=== PATIENT | female | born 1955 | race Caucasian/White ===

== ENCOUNTER 2023-01-12 09:13 | Outpatient (AMB) | payer MEDICARE, MEDICAID, SELFPAY ==
--- NOTE | 2023-01-12 09:56 | MHC.OFFVIS ---
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 Intake Note: NPV for Parkinsons, states mom had it and from it Punch Box Tender Required: No Allergies egg [EGG] Allergy (Unknown, Unverified 01/12/23 09:56) UNKNOWN levothyroxine Allergy (Unknown, Verified 01/12/23 09:56) Unknown milk [MILK] Allergy (Unknown, Unverified 01/12/23 09:56) UNKNOWN Penicillins [PENICILLINS] Allergy (Unknown, Unverified 01/12/23 09:56) UNKNOWN Seasonal Allergies Allergy (Unknown, Verified 01/12/23 09:56) Unknown Medication List - Last Reconciled 01/12/23 by Mine Cartagena MD aspirin (Adult Low Dose Aspirin) 81 mg PO .prn HPI HPI Comments History of Present Illness Details 67y/o female comes for evaluation of leg weakness, leg cramps , leg pain , gait difficulty. SHe had COVID in 2019 and early 2022 she started having leg pain, cramps and weakness .The pain is in the calf and thighs right more than left - describes as muscle pain. Sometimes she also has some numbness and tingling.The pain is worse with activity. when she tries to get up from sitting position she reports knee pain and hip pain.Exercise helps.w hen she is walking- she [facility] in the beginning but it subsides when she walks more. she has occasional back pain she also describes leg cramps which is different from leg pain. These symptoms worsens her gait. Her mother had parkinsons disease and her PCP wanted to be evaluated for parkinsons when she is stressed she had mild tremors. [facility] Medical History (Updated 01/12/23 @ 11:07 by Mine Cartagena MD) Pain Muscle cramps Muscle spasm Anxiety Hypothyroidism Arthritis HTN (hypertension) Surgical History (Updated 01/12/23 @ 09:58 by Jaimie Lerma CMA) History of laparoscopy Family History (Updated 01/12/23 @ 10:00 by Jaimie Lerma CMA) Mother FH: Parkinson's disease Father Diabetes Family/Other Allergies Asthma Family/Other Allergies Asthma Review of Systems Const Reports fatigue Musc Reports back pain, Reports arthralgias, Reports numbness and Reports tingling Neuro Reports numbness and Reports tingling Endo Reports fatigue Physical Exam Vital Signs: Last Vital Signs Pulse 79 01/12/23 10:00 BP 150/98 H 01/12/23 10:00 Pulse Ox 99 01/12/23 10:00 Oxygen Delivery Method Room Air 01/12/23 10:00 BMI result Body Mass Index 23.9 Const General: cooperative, healthy appearing and comfortable Nutritional Appearance: average body habitus Orientation/consciousness: patient oriented x3 Eyes Pupils: Equal, round and reactive pupils present Neuro General: patient oriented x3, tone normal, moves all extremities and no focal motor deficits Cranial nerves: Yes Facial sensation intact/muscles of mastication intact, Yes Equal, round and reactive pupils present, Yes Bilaterally intact EOM present, Yes Nystagmus not present, Yes Normal facial strength present, Yes Midline tongue present, Yes Symmetric palate elevation present and Yes Ability to bilaterally elevate shoulders present Cognition (Neuro): normal cognition Gait exam (Neuro): Normal gait present Motor exam (neuro): 5/5 motor strength present throughout and Normal motor muscle tone present throughout Sensory Exam: stereognosis abnormal Deep tendon reflexes (DTR's): Right triceps reflex intensity grade: 1+, Left triceps reflex intensity grade: 1+, Rt Biceps (C5, C6): 1+, Left biceps reflex intensity grade: 1+, Right brachioradialis reflex intensity grade: 1+, Left brachioradialis reflex intensity grade: 1+, Right patellar reflex intensity grade: 1+ and Left patellar reflex intensity grade: 1+ Coordination: [id number] test normal Assessment & Plan Assessment & Plan (1) Muscle cramps: Code(s): R25.2 - Cramp and spasm (2) Pain: Comment: Lorenzo LE and stiffness Code(s): R52 - Pain, unspecified Plan Her neurological exam was normal today Musculoskeletal issues are likely contributing to her leg pain stiffness and cramps Untreated hypothyroidism can also cause muscle cramps I suggested PT and magnesium 400mg qhs Check her CBC CMP Vit B 12 ESR Orders: Orders Vitamin D 25-OH (D2 and D3) Today F41.9 - Anxiety disorder, unspecified, M62.838 - Other muscle spasm Erythrocyte Sedimentation Rate Today F41.9 - Anxiety disorder, unspecified, M62.838 - Other muscle spasm Complete Blood Count Auto Diff Today F41.9 - Anxiety disorder, unspecified, M62.838 - Other muscle spasm PT Evaluation and Treatment Today M19.90 - Unspecified osteoarthritis, unspecified site, M62.838 - Other muscle spasm Vitamin B12 and Folate Today F41.9 - Anxiety disorder, unspecified, M62.838 - Other muscle spasm Comprehensive Met. Panel Today F41.9 - Anxiety disorder, unspecified, M62.838 - Other muscle spasm PT Evaluation and Treatment Today M190 - Unspecified osteoarthritis, unspecified site, M62.838 - Other muscle spasm Medications: New magnesium oxide 400 mg PO BEDTIME 30 tabs 6RF Coding Level of Care Code New Pt Level 4 (30145) Diagnoses Muscle cramps R25.2 Pain R52
[2023-01-12 10:00] VITALS: BP 150/98; PULSE 79; O2SAT 99; BMI 23.9
== END 2023-01-12 10:29 | disposition home or self-care (01) ==
PROVIDERS: Visit Provider Psychiatry & Neurology Neurology
DX: R25.2 Cramp and spasm (principal); R52 Pain, unspecified
CPT/HCPCS: 99204

== ENCOUNTER → 2023-01-12 09:13 | Outpatient (BNVA) | payer MEDICARE, SELFPAY | PROVIDERS: Visit Provider Psychiatry & Neurology Neurology ==